=== PATIENT | male | born 1955 | race Caucasian/White ===

== ENCOUNTER → 2018-02-02 | Outpatient (CLI) | payer OTHER, MEDICARE ==
[2018-02-02 18:57] LABS: BILIRUBIN,URINE 1+ (NEGATIVE); CLARITY,URINE VERY CLOUDY; COLOR,URINE YELLOW; GLUCOSE, URINE (UA) NEGATIVE (NEGATIVE); KETONES,URINE 1+ (NEGATIVE); LEUKOCYTE ESTERASE ,URINE 3+ (NEGATIVE); NITRITE,URINE POSITIVE (NEGATIVE); PH,URINE 5 (5-9); PROTEIN,URINE 3+ (NEGATIVE); UROBILINOGEN,URINE 1 MG/DL (NORMAL)
[2018-02-02 19:15] LABS: BACTERIA,URINE FEW /HPF; WBC,URINE TNTC /HPF
[2018-02-02 19:17] LABS: AMORPHOUS SEDIMENT,UR LARGE AMOR URATES /LPF; BILIRUBIN,TOTAL 0.9 MG/DL (0.1-1.0); CALCIUM 8.8 MG/DL (8.5-10.1); CREATININE SERUM 2.88 MG/DL (0.60-1.30); POTASSIUM 3.9 MMOL/L (3.6-5.0); TOTAL PROTEIN 7.5 GM/DL (6.4-8.2)
[2018-02-02 19:59] LABS: BASOPHILS % (AUTO) 0 % (0-10); EOSINOPHILS # (AUTO) 0.1 10^3/uL (0.0-0.3); EOSINOPHILS % (AUTO) 1 % (0-10); HEMATOCRIT 33 % (40-54); LYMPHOCYTES # (AUTO) 0.5 X 10^3 (1.0-4.0); LYMPHOCYTES % (AUTO) 10 % (12-44); MEAN CORPUSCULAR HEMOGLOBIN 33 PG (25-34); MEAN CORPUSCULAR HGB CONC 34 G/DL (32-36); MEAN CORPUSCULAR VOLUME 99 FL (80-99); MEAN PLATELET VOLUME 10.9 FL (7.4-10.4); MONOCYTES # (AUTO) 0.5 X 10^3 (0.0-1.0); MONOCYTES % (AUTO) 11 % (0-12); NEUTROPHILS % (AUTO) 78 % (42-75); PLATELET COUNT 125 10^3/uL (130-400); RED CELL DISTRIBUTION WIDTH 16.7 % (10.0-14.5); WHITE BLOOD COUNT 5.2 10^3/uL (4.3-11.0)
== END ==
PROVIDERS: ATTEND Family Medicine
DX: N18.3 Chronic kidney disease, stage 3 (moderate) (principal); I48.2 Chronic atrial fibrillation; R82.90 Unspecified abnormal findings in urine
CPT/HCPCS: 80053; 81000; 85025; 87077; 87088; 87186

== ENCOUNTER 2019-04-04 07:08 | Emergency (ER) | payer MEDICARE, OTHER ==
[~2019-04-04 07:08] MED LIST: AMIO200T4; COLC0.6T53; FEBU40TA; LEVO175T5; OMEP20CA13; OXYC-464; ROPI0.5T2; WARF-47
[2019-04-04 07:36] LABS: BASOPHILS % (AUTO) 0 % (0-10); EOSINOPHILS % (AUTO) 0 % (0-10); HEMATOCRIT 35 % (40-54); HEMOGLOBIN 11.7 G/DL (13.3-17.7); LYMPHOCYTES # (AUTO) 0.3 X 10^3 (1.0-4.0); LYMPHOCYTES % (AUTO) 2 % (12-44); MEAN CORPUSCULAR HEMOGLOBIN 35 PG (25-34); MEAN CORPUSCULAR HGB CONC 34 G/DL (32-36); MEAN CORPUSCULAR VOLUME 103 FL (80-99); MEAN PLATELET VOLUME 10.9 FL (7.4-10.4); MONOCYTES % (AUTO) 5 % (0-12); NEUTROPHILS # (AUTO) 12.5 X 10^3 (1.8-7.8); NEUTROPHILS % (AUTO) 91 % (42-75); PLATELET COUNT 77 10^3/uL (130-400); RED CELL DISTRIBUTION WIDTH 15.2 % (10.0-14.5); WHITE BLOOD COUNT 13.7 10^3/uL (4.3-11.0)
[2019-04-04 07:37] LABS: MONOCYTES # (AUTO) 0.7 X 10^3 (0.0-1.0)
[2019-04-04] MEDS ORDERED: ACETAMINOPHEN 500 MG TAB (TYLENOL) PO ONE (07:45)
[2019-04-04 07:49] LABS: POTASSIUM 3.6 MMOL/L (3.6-5.0)
[2019-04-04 07:50] LABS: ALBUMIN 3.8 GM/DL (3.2-4.5); BILIRUBIN,TOTAL 0.8 MG/DL (0.1-1.0); CREATININE SERUM 5.18 MG/DL (0.60-1.30); TOTAL PROTEIN 7.2 GM/DL (6.4-8.2)
[2019-04-04] MEDS ORDERED: AMIODARONE 200 MG (CORDARONE) TAB PO SCH (08:00)
--- NOTE | 2019-04-04 08:00 | Diagnostic Imaging Report ---
INDICATION: Fever, chills COMPARISON: 11/09/2018 TECHNIQUE: Single radiograph of the chest dated 04/04/2019. FINDINGS: Postsurgical changes of a median sternotomy. Previously noted right IJ dialysis catheter has been removed. Pacer device is again noted with the battery pack overlying the left chest. The cardiac silhouette is enlarged, though stable. Central pulmonary vascular congestion is present. The lungs are clear of focal pulmonary opacity. No pleural effusion. No pneumothorax. No acute osseous abnormality. IMPRESSION: Cardiomegaly with mild central pulmonary vascular congestion. Interval removal of previously noted right IJ dialysis catheter. Dictated by: Dictated on workstation # [id number]
[2019-04-04 08:02] LABS: BAND NEUTROPHILS 16 %; BASOPHILS % (MANUAL) 0 %; EOSINOPHILS % (MANUAL) 0 %; INR 2.1 (0.8-1.4); LYMPHOCYTES % (MANUAL) 3 %; MONOCYTES % (MANUAL) 2 %; NEUTROPHILS % (MANUAL) 79 %
[2019-04-04 08:03] LABS: ANISOCYTOSIS SLIGHT
[2019-04-04 08:12] LABS: BACTERIA,URINE MODERATE /HPF; BILIRUBIN,URINE NEGATIVE (NEGATIVE); CLARITY,URINE SL CLOUDY; COLOR,URINE YELLOW; GLUCOSE, URINE (UA) NEGATIVE (NEGATIVE); KETONES,URINE NEGATIVE (NEGATIVE); LEUKOCYTE ESTERASE ,URINE 2+ (NEGATIVE); NITRITE,URINE NEGATIVE (NEGATIVE); PH,URINE 5.5. (5-9); PROTEIN,URINE 1+ (NEGATIVE); SQUAMOUS EPITHELIAL CELL,UR 0-2 /HPF; WBC,URINE 50-100 /HPF
--- NOTE | 2019-04-04 08:23 | ED General ---
General Chief Complaint: Fever-Adult/Adol Stated Complaint: N/V Nursing Triage Note: Brought in by EMS for nausea, vomiting, diarrhea since 0300 and chills. Patient is on dialysis and was unable to go to dialysis yesterday due to not feeling well. Normally goes to dialysis on tuesdays, , and saturdays. Is brought in on nonrebreather due to O2 sats in low 80's when ems arrived. Was given 4 mg of zofran en route to ED and approximately 200 ml of NS. Patient is able to state name and date, but is unable to answer questions about his current illness. Family present states they have never seen him this disoriented. Nursing Sepsis Screen: No Definite Risk Source of Information: Patient, EMS, Family Exam Limitations: No Limitations History of Present Illness Date Seen by Provider: Apr 04, 2019 Time Seen by Provider: 07:15 Initial Comments Presents via EMS w c/o onset of n/v/d last night @ 0300. Given zofran en-route to ER w relief of nausea. Pt confused on arrival and difficulty completing a sentence, but answers questions appropriately. Son presents later and states he is not acting normally and has been feeling poorly for a couple days....missed dialysis yesterday as he wasn't feeling well. Allergies and Home Medications Allergies Coded Allergies: Penicillins (Unverified Adverse Reaction, Unknown, 11/09/18) bacitracin (Unverified Adverse Reaction, Unknown, 11/09/18) neomycin (Unverified Adverse Reaction, Unknown, 11/09/18) polymyxin B (Unverified Adverse Reaction, Unknown, 11/09/18) Patient Home Medication List Home Medication List Reviewed: Yes Review of Systems Review of Systems Constitutional: No chills, No fever; malaise, weakness Respiratory: cough; No short of breath Cardiovascular: No chest pain; edema; No palpitations, No syncope; vascular heart diseas Gastrointestinal: No abdominal pain; diarrhea, nausea, vomiting Musculoskeletal: No back pain, No joint pain Skin: No lesions, No rash Psychiatric/Neurological: Denies Headache, Denies Numbness, Denies Seizure unable to obtain due to MS change Past Ntvjure-Euembr-Tqmuob Hx Past Med/Social Hx: Reviewed Nursing Past Med/Soc Hx Patient Social History Alcohol Use: Denies Use Recreational Drug Use: No Smoking Status: Former Smoker Type Used: Cigarettes Former Smoker, Quit: Apr 23, 1991 2nd Hand Smoke Exposure: No Recent Foreign Travel: No Contact w/Someone Who Travel: No Recent Infectious Disease Expo: No Recent Hopitalizations: No Physical Abuse: No Sexual Abuse: No Mistreated: No Fear: No Immunizations Up To Date Tetanus Booster (TDap): Unknown Seasonal Allergies Seasonal Allergies: No Past Medical History Surgeries: Yes (CVC line placement, Fistula placement, AVR, hernia repair, kidney stones) Defibrillator, Valve Replacement Respiratory: No (Tobaccoism hx 27 yrs) Cardiac: Yes (CHF) Hypertension Neurological: No Genitourinary: Yes Kidney Stones, Renal Failure Gastrointestinal: No Musculoskeletal: No Endocrine: Yes Hypothyroidsim HEENT: No Cancer: No Psychosocial: No Integumentary: No Recent Skin Changes Blood Disorders: No Physical Exam-Suspected Sepsis Physical Exam Vital Signs Vital Signs - First Documented 04/04/19 07:29 Temp 38.6 Pulse 117 Resp 30 B/P (MAP) 112/80 (91) Pulse Ox 99 Capillary Refill : Less Than 3 Seconds Blood Pressure Mean: 91 POS Height, Weight, BMI Height: 5'9.00" Weight: 261lbs. oz. 118.576380nh; BMI Method:Stated General Appearance: No Apparent Distress, WD/WN Eyes: Bilateral Eye PERRL, Bilateral Eye EOMI HEENT: TMs Normal, Pharynx Normal Neck: Full Range of Motion, Normal Inspection, Non Tender, Supple Respiratory: Chest Non Tender, No Respiratory Distress; No Respiratory Distress; Rhonci Cardiovascular: Irregularly Irregular, Tachycardia Gastrointestinal: Normal Bowel Sounds, Non Tender, Soft Back: No CVA Tenderness Extremity: Non Tender, No Calf Tenderness, Pedal Edema, Other (chronic LE- edema and skin changes) Neurologic/Psychiatric: Alert, Disoriented Skin: normal color, warm/dry Lymphatic: No Adenopathy Focused Exam Lactate Level 04/04/19 07:25: Lactic Acid Level 4.19*H Lactic Acid Level Progress/Results/Core Measures Suspected Sepsis Recent Fever Within 48 Hours: Yes Infection Criteria Present: Suspected New Infection New/Unexplained Altered Menta: Yes Sepsis Screen: No Definite Risk Within 3hrs of presentation: Admin fluids, Admin ABX, Blood cultures prior to ABX's, Focus exam, Lactate level SIRS Temperature: Pulse: 117 Respiratory Rate: 30 Laboratory Tests 04/04/19 07:25: White Blood Count 13.7H Blood Pressure 112 /80 Mean: 91 04/04/19 07:25: Lactic Acid Level 4.19*H Laboratory Tests 04/04/19 07:25: Creatinine 5.18H, INR Comment 2.1H, Platelet Count 77L, Total Bilirubin 0.8 Results/Orders Lab Results Laboratory Tests Test 04/04/19 07:25 04/04/19 08:01 Range/Units White Blood Count 13.7 H 4.3-11.0 10^3/uL Red Blood Count 3.39 L 4.35-5.85 10^6/uL Hemoglobin 11.7 L 13.3-17.7 G/DL Hematocrit 35 L 40-54 % Mean Corpuscular Volume 103 H 80-99 FL Mean Corpuscular Hemoglobin 35 H 25-34 PG Mean Corpuscular Hemoglobin Concent 34 32-36 G/DL Red Cell Distribution Width 15.2 H 10.0-14.5 % Platelet Count 77 L 130-400 10^3/uL Mean Platelet Volume 10.9 H 7.4-10.4 FL Neutrophils (%) (Auto) 91 H 42-75 % Lymphocytes (%) (Auto) 2 L 12-44 % Monocytes (%) (Auto) 5 0-12 % Eosinophils (%) (Auto) 0 0-10 % Basophils (%) (Auto) 0 0-10 % Neutrophils # (Auto) 12.5 H 1.8-7.8 X 10^3 Lymphocytes # (Auto) 0.3 L 1.0-4.0 X 10^3 Monocytes # (Auto) 0.7 0.0-1.0 X 10^3 Eosinophils # (Auto) 0.0 0.0-0.3 10^3/uL Basophils # (Auto) 0.0 0.0-0.1 10^3/uL Neutrophils % (Manual) 79 % Lymphocytes % (Manual) 3 % Monocytes % (Manual) 2 % Eosinophils % (Manual) 0 % Basophils % (Manual) 0 % Band Neutrophils 16 % Anisocytosis SLIGHT Macrocytosis SLIGHT Prothrombin Time 24.0 H 12.2-14.7 SEC INR Comment 2.1 H 0.8-1.4 Sodium Level 133 L 135-145 MMOL/L Potassium Level 3.6 3.6-5.0 MMOL/L Chloride Level 95 L 98-107 MMOL/L Carbon Dioxide Level 22 21-32 MMOL/L Anion Gap 16 H 5-14 MMOL/L Blood Urea Nitrogen 67 H 7-18 MG/DL Creatinine 5.18 H 0.60-1.30 MG/DL Estimat Glomerular Filtration Rate 11 BUN/Creatinine Ratio 13 Glucose Level 124 H 70-105 MG/DL Lactic Acid Level 4.19 *H 0.50-2.00 MMOL/L Calcium Level 9.0 8.5-10.1 MG/DL Corrected Calcium 9.2 8.5-10.1 MG/DL Total Bilirubin 0.8 0.1-1.0 MG/DL Aspartate Amino Transf (AST/SGOT) 23 5-34 U/L Alanine Aminotransferase (ALT/SGPT) 10 0-55 U/L Alkaline Phosphatase 50 40-136 U/L Total Protein 7.2 6.4-8.2 GM/DL Albumin 3.8 3.2-4.5 GM/DL Urine Color YELLOW Urine Clarity SL CLOUDY Urine pH 5.5. 5-9 Urine Specific Reading 1.020 1.016-1.022 Urine Protein 1+ H NEGATIVE Urine Glucose (UA) NEGATIVE NEGATIVE Urine Ketones NEGATIVE NEGATIVE Urine Nitrite NEGATIVE NEGATIVE Urine Bilirubin NEGATIVE NEGATIVE Urine Urobilinogen 0.2 < = 1.0 MG/DL Urine Leukocyte Esterase 2+ H NEGATIVE Urine RBC (Auto) 2+ H NEGATIVE Urine RBC 2-5 H /HPF Urine WBC 50-100 H /HPF Urine Squamous Epithelial Cells 0-2 /HPF Urine Crystals NONE /LPF Urine Bacteria MODERATE H /HPF Urine Casts NONE /LPF Urine Mucus NEGATIVE /LPF Urine Culture Indicated YES Micro Results Microbiology 04/04/19 Influenza Types A,B Antigen (EDWINA) - Final, Complete My Orders Orders - ODALYS BLANC DO Ed Iv/Invasive Line Start (04/04/19 07:11) Cbc With Automated Diff (04/04/19 07:11) Comprehensive Metabolic Panel (04/04/19 07:11) Ekg Tracing (04/04/19 07:11) Manual Differential (04/04/19 07:25) Chest 1 View Ap/Pa Only (04/04/19 07:39) Lactic Acid Analyzer (04/04/19 07:39) Acetaminophen Tablet (Tylenol Tablet) (04/04/19 07:45) Blood Culture (04/04/19 07:48) Protime With Inr (04/04/19 07:48) Amiodarone Tablet (Cordarone Tablet) (04/04/19 08:00) Urinalysis (04/04/19 08:00) Influenza A And B Antigens (04/04/19 08:10) Urine Culture (04/04/19 08:01) Vancomycin Injection (Vancomycin Injecti (04/04/19 08:30) Vancomycin Injection (Vancomycin Injecti (04/04/19 08:34) Ns (Ivpb) (Sodium Chloride 0.9%) (04/04/19 08:34) Amiodarone For Bolus (Cordarone Bolus) (04/04/19 09:30) Amiodarone Injection (Cordarone Injectio (04/04/19 09:45) Norepinephrine (Levophed) (04/04/19 10:07) Ns (Ivpb) (Sodium Chloride 0.9%) (04/04/19 10:07) Norepinephrine (Levophed) (04/04/19 10:15) Meropenem (Merrem 1000 Mg) (04/04/19 10:15) Meropenem (Merrem 500 Mg) (04/04/19 10:19) Water (Sterile) For Injection (Sterile W (04/04/19 10:19) Ekg Tracing (04/04/19 11:12) Blood Culture (04/04/19 08:14) Medications Given in ED Current Medications Medications Dose Ordered Sig/Roly Route Start Time Stop Time Status Last Admin Dose Admin Acetaminophen 1,000 mg ONCE ONCE PO 04/04/19 07:45 04/04/19 07:46 DC 04/04/19 08:07 1,000 MG Amiodarone HCl 150 mg/Dextrose 103 ml @ 600 mls/hr ONCE ONCE IV 04/04/19 09:30 04/04/19 09:40 DC 04/04/19 09:46 600 MLS/HR Meropenem 1000 mg/ Sterile Water 20 ml @ 240 mls/hr ONCE ONCE IV 04/04/19 10:15 04/04/19 10:19 DC 04/04/19 10:27 240 MLS/HR Vital Signs/I&O 04/04/19 04/04/19 04/04/19 04/04/19 07:29 08:18 09:03 10:45 Temp 38.6 38.5 38.4 38.3 Pulse 117 123 109 Resp 30 30 29 B/P (MAP) 112/80 (91) 156/103 98/26 (50) Pulse Ox 99 95 93 Capillary Refill : Less Than 3 Seconds Blood Pressure Mean: 91 POS Progress Note : Time: 09:[address] Beverly (hospitalist @ [facility]) discussed consideration of pt transfer. Dr Hightower says that because pt is on dialysis it would be better to go to [facility] Pt w multiple episodes of V. Tach, sustained for > 30 sec. Normally takes Amiodarone, given bolus and started gtt. Called [facility] @ 0940 to ask about bed status and to escalate importance of transfer 1005- Spoke to Dr Stanton (director of real estate @ [facility]) who accepts to ICU. Advised to start Meripenum Discussed critical medical status w patient, his son and . Discussion between pt and his son regarding wishes to be DNR status.....nurse present for conversation. Does not want "life support or CPR" performed. Left ER Dept improved, but guarded. HR improved w decreased runs of sustained V-tach. Left on Levophed and Amiodarone gtts. Meropenim started. ECG Initial ECG Impression Date: Apr 04, 2019 Initial ECG Rhythm: A Fib/Flutter, PVC Initial ECG Impression: Atrial Fibrillation w/RVR Initial ECG Comparisson: No Previous ECG Available Diagnostic Imaging Plain Films/CT/US/NM/MRI: chest Reviewed: Reviewed by Me Critical Care Note Critical Care Start Time: 07:15 Stop Time: 08:15 Total Time (minutes) 60 Progress See chart for pt course. Septic w Cardiac arrhythmia. Amiodarone bolus and IV gtt started as well as NE gtt for low MAP. Departure Impression Primary Impression: Sepsis Qualified Codes: A41.9 - Sepsis, unspecified organism Additional Impressions: CRF (chronic renal failure) Qualified Codes: N18.9 - Chronic kidney disease, unspecified Ventricular tachyarrhythmia Disposition: XFER SHT-TRM HOSP Condition: Stable Transfer Transfer Reason: Exceeds level of care (needs facility w Dialysis capabilities) Time Spoke to Accepting Phy: 08:00 Transfer Progress Notes Spoke to Dr Al-Minri regarding pt presentation and HPI as well as pertinent PMHx and Dx of Sepsis with suspected gastrointestinal etiology.....accepts for transfer @ 0800 Patient later accepted by Dr Stanton ([facility]) Transfer Facility: [facility] Method of Transfer: EMS Departure-Patient Inst. Referrals: SELF,BRANDIN CASE (PCP/Family) Primary Care Physician ODALYS BLANC DO Apr 04, 2019 08:22 POS
[2019-04-04] MEDS ORDERED: VANCOMYCIN INJECTION 1,000 MG in NS (IVPB) 250 ML IV SCH (08:30)
[2019-04-04] MEDS ORDERED: NS (IVPB) 250 ML ONE ×2 (08:34→10:07)
[2019-04-04] MEDS ORDERED: VANCOMYCIN 1000 MG/VIAL ONE (08:34)
[2019-04-04] MEDS ORDERED: AMIODARONE FOR BOLUS 150 MG in D5W 100 ML IVPB 100 ML IV ONE (09:30)
[2019-04-04] MEDS ORDERED: AMIODARONE INJECTION 450 MG in D5W IV SOLUTION (EXCEL) 250 ML IV SCH (09:45)
[2019-04-04] MEDS ORDERED: NOREPINEPHRINE 4 MG/4 ML (LEVOPHED) AMP IV ONE (10:07)
[2019-04-04] MEDS ORDERED: NOREPINEPHRINE 4 MG in NS (IVPB) 250 ML IV SCH (10:15)
[2019-04-04] MEDS ORDERED: MEROPENEM 1,000 MG in WATER (STERILE) FOR INJECTION 20 ML IV ONE (10:15)
[2019-04-04] MEDS ORDERED: MEROPENEM 500 MG VIAL (MERREM) IV ONE (10:19)
[2019-04-04] MEDS ORDERED: WATER (STERILE) FOR INJECTION 20 ML ONE (10:19)
[2019-04-04 10:45] VITALS: BP 98/26
== END 2019-04-04 10:45 | disposition short-term general hospital (02) ==
LOC: EDBD → EDUNIT# 07:08 → ER FS 07:09 → MERGE 07:09 → ER FS 10:45
DX: A41.9 Sepsis, unspecified organism (principal); R65.20 Severe sepsis without septic shock; I13.2 Hypertensive heart and chronic kidney disease with heart failure and with stage 5 chronic kidney disease, or end stage renal disease; I50.9 Heart failure, unspecified; N18.6 End stage renal disease; I47.2 Ventricular tachycardia; E03.9 Hypothyroidism, unspecified; Z99.2 Dependence on renal dialysis; Z88.0 Allergy status to penicillin; Z88.1 Allergy status to other antibiotic agents; Z87.891 Personal history of nicotine dependence; Z95.810 Presence of automatic (implantable) cardiac defibrillator; Z87.442 Personal history of urinary calculi
CPT/HCPCS: 36415; 71045; 80053; 81000; 83605; 85007; 85027; 85610; 87040; 87077; 87088; 87186; 87804; 93005; 96365; 96367; 96368; 96375

== ENCOUNTER 2019-05-10 09:18 | Emergency (ER) | payer MEDICARE, OTHER ==
[~2019-05-10] VITALS: Ht 175.2 cm; Wt 115.9 kg
[~2019-05-10 09:18] MED LIST changes: +OMEP-280; -OMEP20CA13
[2019-05-10 11:23] LABS: BASOPHILS % (AUTO) 0 % (0-10); EOSINOPHILS % (AUTO) 0 % (0-10); HEMATOCRIT 34 % (40-54); HEMOGLOBIN 10.9 G/DL (13.3-17.7); LYMPHOCYTES # (AUTO) 0.9 X 10^3 (1.0-4.0); LYMPHOCYTES % (AUTO) 30 % (12-44); MEAN CORPUSCULAR HEMOGLOBIN 34 PG (25-34); MEAN CORPUSCULAR HGB CONC 32 G/DL (32-36); MEAN CORPUSCULAR VOLUME 105 FL (80-99); MEAN PLATELET VOLUME 11.1 FL (7.4-10.4); MONOCYTES # (AUTO) 0.4 X 10^3 (0.0-1.0); MONOCYTES % (AUTO) 14 % (0-12); NEUTROPHILS # (AUTO) 1.6 X 10^3 (1.8-7.8); NEUTROPHILS % (AUTO) 56 % (42-75); PLATELET COUNT 111 10^3/uL (130-400); RED CELL DISTRIBUTION WIDTH 17.4 % (10.0-14.5); WHITE BLOOD COUNT 2.8 10^3/uL (4.3-11.0)
[2019-05-10 11:52] LABS: ALBUMIN 3.5 GM/DL (3.2-4.5); BILIRUBIN,TOTAL 0.6 MG/DL (0.1-1.0); CALCIUM 8.7 MG/DL (8.5-10.1); POTASSIUM 3.6 MMOL/L (3.6-5.0); TOTAL PROTEIN 8.1 GM/DL (6.4-8.2)
--- NOTE | 2019-05-10 11:55 | NUR ---
OLD PICC LINE DRESSNG REMOVED CULTURE OBTAINED. REDNESS AND AT SITE SEROUS DRAINGAGE NOTED. NEW DRESSNG APPLIED PATIEND REPORTS THAT IT FEELS MUCH BETTER.
--- NOTE | 2019-05-10 13:10 | NUR ---
[facility] CALLED AND INFORMED THAT PATIENT IS TRANSFERING TO [facility],AND THEY NEED TO COME GET HIS W/C
--- NOTE | 2019-05-10 13:16 | ED General ---
General Chief Complaint: Catheter/Drain/Tube Problems Stated Complaint: INFECTED PICC LINE Nursing Triage Note: TO ED PER W/C FROM [facility] CONCERN THAT PICC LINE IN R ARM MAY BE INFECTED. REDNESS NOTED. PATIENT REPORTS THAT REDNESS WAS NOT THEIR YESTERDAY. USING PICC LINE FOR ANTIBIOTICS. Nursing Sepsis Screen: No Definite Risk Source of Information: Patient, Alf Records, Other (alf caregiver) Exam Limitations: No Limitations History of Present Illness Date Seen by Provider: May 10, 2019 Time Seen by Provider: 09:57 Initial Comments This 63-year-old gentleman presents to the emergency room from [facility] in [place] with concerns about erythema and drainage around his right arm PICC line. He noticed the erythema and drainage this morning. He has serous fluid pooled up underneath the dressing. He states the area is mildly itchy and painful. He was admitted by transfer from [place] to [place] in mid March for sepsis. He has a complicated patient because he receives dialysis and has a mechanical heart valve. He has been on continuous nafcillin infusions since returning to the alf. He is afebrile and does not present septic. He receives dialysis Sunday, , and Sunday. He is missing dialysis now. Allergies and Home Medications Allergies Coded Allergies: Penicillins (Unverified Adverse Reaction, Unknown, 04/07/19) bacitracin (Unverified Adverse Reaction, Unknown, 04/07/19) neomycin (Unverified Adverse Reaction, Unknown, 04/07/19) polymyxin B (Unverified Adverse Reaction, Unknown, 04/07/19) Patient Home Medication List Home Medication List Reviewed: Yes Review of Systems Review of Systems Constitutional: no symptoms reported EENTM: no symptoms reported Respiratory: no symptoms reported Cardiovascular: no symptoms reported Gastrointestinal: no symptoms reported Genitourinary: see HPI Musculoskeletal: no symptoms reported Skin: see HPI Psychiatric/Neurological: No Symptoms Reported Hematologic/Lymphatic: No Symptoms Reported Immunological/Allergic: no symptoms reported Past Kqydhgn-Hcpmen-Wtxhye Hx Past Med/Social Hx: Reviewed and Corrections made Patient Social History Alcohol Use: Denies Use Recreational Drug Use: No Smoking Status: Former Smoker Type Used: Cigarettes Former Smoker, Quit: Apr 23, 1991 2nd Hand Smoke Exposure: No Recent Foreign Travel: No Contact w/Someone Who Travel: No Recent Infectious Disease Expo: No Recent Hopitalizations: No Immunizations Up To Date Tetanus Booster (TDap): Unknown Seasonal Allergies Seasonal Allergies: No Past Medical History Surgeries: Yes (CVC line placement, Fistula placement, AVR, hernia repair, kidney stones) Defibrillator, Valve Replacement (mechanical), Vascular Surgery (dialysis fistula) Respiratory: No (Tobaccoism hx 27 yrs) Cardiac: Yes (CHF) Hypertension Neurological: No Genitourinary: Yes Kidney Stones, Renal Failure, Dialysis Gastrointestinal: No Musculoskeletal: No Endocrine: Yes Hypothyroidsim HEENT: No Cancer: No Psychosocial: No Integumentary: No Recent Skin Changes Blood Disorders: No Physical Exam Vital Signs Vital Signs - First Documented 05/10/19 05/10/19 09:40 15:05 Temp 36.8 Pulse 82 Resp 18 B/P (MAP) 141/94 (110) Pulse Ox 98 O2 Delivery Room Air Capillary Refill : Less Than 3 Seconds Height, Weight, BMI Height: 5'9.00" Weight: 261lbs. oz. 118.631763ar; 37.00 BMI Method:Stated General Appearance: No Apparent Distress, WD/WN HEENT: PERRL/EOMI, Normal ENT Inspection Neck: Normal Inspection Respiratory: Lungs Clear, Normal Breath Sounds, No Accessory Muscle Use Cardiovascular: Regular Rate, Rhythm, No Murmur, Other (moderate to severe edema of the lower extremities, equal bilaterally) Extremity: Other (PICC line in the right arm with surrounding erythema and tenderness. Serous drainage pooled up beneath the dressing around the insertion site) Neurologic/Psychiatric: Alert, Oriented x3, No Motor/Sensory Deficits, Normal Mood/Affect, scaffolder II-XII Norm as Tested Skin: Warm/Dry, Erythema (see extremity exam above) Progress/Results/Core Measures Suspected Sepsis Recent Fever Within 48 Hours: No Infection Criteria Present: Documented Infection New/Unexplained Altered Menta: No Sepsis Screen: No Definite Risk SIRS Temperature: Pulse: 82 Respiratory Rate: 18 Laboratory Tests 05/10/19 11:13: White Blood Count 2.8L Blood Pressure 141 /94 Mean: 110 Laboratory Tests 05/10/19 11:13: Creatinine 8.00H, Platelet Count 111L, Total Bilirubin 0.6 Results/Orders Lab Results Laboratory Tests Test 05/10/19 11:13 Range/Units White Blood Count 2.8 L 4.3-11.0 10^3/uL Red Blood Count 3.21 L 4.35-5.85 10^6/uL Hemoglobin 10.9 L 13.3-17.7 G/DL Hematocrit 34 L 40-54 % Mean Corpuscular Volume 105 H 80-99 FL Mean Corpuscular Hemoglobin 34 25-34 PG Mean Corpuscular Hemoglobin Concent 32 32-36 G/DL Red Cell Distribution Width 17.4 H 10.0-14.5 % Platelet Count 111 L 130-400 10^3/uL Mean Platelet Volume 11.1 H 7.4-10.4 FL Neutrophils (%) (Auto) 56 42-75 % Lymphocytes (%) (Auto) 30 12-44 % Monocytes (%) (Auto) 14 H 0-12 % Eosinophils (%) (Auto) 0 0-10 % Basophils (%) (Auto) 0 0-10 % Neutrophils # (Auto) 1.6 L 1.8-7.8 X 10^3 Lymphocytes # (Auto) 0.9 L 1.0-4.0 X 10^3 Monocytes # (Auto) 0.4 0.0-1.0 X 10^3 Eosinophils # (Auto) 0.0 0.0-0.3 10^3/uL Basophils # (Auto) 0.0 0.0-0.1 10^3/uL Sodium Level 141 135-145 MMOL/L Potassium Level 3.6 3.6-5.0 MMOL/L Chloride Level 98 98-107 MMOL/L Carbon Dioxide Level 24 21-32 MMOL/L Anion Gap 19 H 5-14 MMOL/L Blood Urea Nitrogen 20 H 7-18 MG/DL Creatinine 8.00 H 0.60-1.30 MG/DL Estimat Glomerular Filtration Rate 7 BUN/Creatinine Ratio 3 Glucose Level 78 70-105 MG/DL Calcium Level 8.7 8.5-10.1 MG/DL Corrected Calcium 9.1 8.5-10.1 MG/DL Total Bilirubin 0.6 0.1-1.0 MG/DL Aspartate Amino Transf (AST/SGOT) 16 5-34 U/L Alanine Aminotransferase (ALT/SGPT) 8 0-55 U/L Alkaline Phosphatase 75 40-136 U/L C-Reactive Protein High Sensitivity 0.53 H 0.00-0.50 MG/DL Total Protein 8.1 6.4-8.2 GM/DL Albumin 3.5 3.2-4.5 GM/DL Micro Results Microbiology 05/10/19 Gram Stain, Resulted Pending 05/10/19 Wound Culture - Preliminary, Resulted My Orders Orders - WALLACE CERVANTES MD Cbc With Automated Diff (05/10/19 09:57) Comprehensive Metabolic Panel (05/10/19 09:57) Hs C Reactive Protein (05/10/19 09:57) Wound Culture (05/10/19 11:00) Vital Signs/I&O 05/10/19 05/10/19 09:40 15:05 Temp 36.8 Pulse 82 87 Resp 18 18 B/P (MAP) 141/94 (110) 141/97 Pulse Ox 98 95 O2 Delivery Room Air Capillary Refill : Less Than 3 Seconds Blood Pressure Mean: 110 Progress Note : Time: 13:20 Progress Note Case was discussed with Dr. Lazaro. His recommendation is to have the PICC line removed and replaced. Via [facility] in [place] and does not have PICC line staff available on the weekends. Patient also is missing his dialysis at present. These factors prompted a call to the hospitalist at [place]. I discussed the case with Dr. Mckeon who agrees patient ought to be assessed and treated at [place] where appropriate resources are available and continuity of care can be insured. Basic labs were obtained. No other specific treatments were administered prior to transfer. Departure Impression Primary Impression: PICC line infection Qualified Codes: T80.219A - Unspecified infection due to central venous catheter, initial encounter Additional Impressions: End stage renal failure on dialysis Mechanical heart valve present Disposition: 02 XFER SHT-TRM HOSP Condition: Stable Transfer Transfer Reason: Exceeds level of care Time Spoke to Accepting Phy: 12:50 Transfer Progress Notes Transfer accepted by Dr. Mckeon at [place]. Transfer Time: 15:14 Transfer Facility: [facility] Method of Transfer: EMS Departure-Patient Inst. Referrals: BRANDIN HAMILTON MD (PCP/Family) Primary Care Physician Copy Copies To 1: BRANDIN HAMILTON MD, JOSHUA T MD May 10, 2019 13:16
--- NOTE | 2019-05-10 13:34 | NUR ---
[facility] NOTIFIED OF TRANSFER
--- NOTE | 2019-05-10 13:36 | NUR ---
WAITING FOR ROOM FROM [facility]
--- NOTE | 2019-05-10 14:04 | NUR ---
CALLED BACK TO CHECK NO BED AVAILABE YET.
--- NOTE | 2019-05-10 14:47 | NUR ---
EMS CALLED FOR TRANSFER
[2019-05-10 15:05] VITALS: BP 141/97
== END 2019-05-10 15:14 | disposition short-term general hospital (02) ==
LOC: EDUNIT# 09:18 → ER 09:19
DX: T80.219A Unspecified infection due to central venous catheter, initial encounter (principal); I13.2 Hypertensive heart and chronic kidney disease with heart failure and with stage 5 chronic kidney disease, or end stage renal disease; I50.9 Heart failure, unspecified; N18.6 End stage renal disease; E03.9 Hypothyroidism, unspecified; Z99.2 Dependence on renal dialysis; Z95.2 Presence of prosthetic heart valve; Z88.0 Allergy status to penicillin; Z88.1 Allergy status to other antibiotic agents; Z88.4 Allergy status to anesthetic agent; Z87.891 Personal history of nicotine dependence; Z87.442 Personal history of urinary calculi; Z95.810 Presence of automatic (implantable) cardiac defibrillator
CPT/HCPCS: 36415; 80053; 85025; 86141; 87070; 87205; 99282

== ENCOUNTER 2019-08-27 08:56 | Emergency (ER) | payer MEDICARE, OTHER ==
[~2019-08-27] VITALS: Ht 175.2 cm; Wt 113.6 kg
[~2019-08-27 08:56] MED LIST changes: -OMEP-280; +OMEP20CA18; -ROPI0.5T2; +ROPI0.5T4
--- OUTSIDE RECORDS SUMMARY | 2019-08-27 09:10 | XMS REPORT | Continuity of Care Document ---
Author Organization Unknown Address Unknown Phone Unavailable Allergies Active Description Code Type Severity Reaction Onset Reported/Identified Relationship to Patient Clinical Status Yes bacitracin [id number] Drug Allerg y Unknown N/A 11/09/2018 Yes neomycin [id number] Drug Allergy Unknown N/A 11/09/2018 Yes Penicillins [id number] Drug Aller gy Unknown N/A 11/09/2018 Yes polymyxin B [id number] Drug Aller gy Unknown N/A 11/09/2018 Medications There is no data. 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 11/09/2018 Ot I50.9 HEAR T FAILURE, UNSPECIFIED 11/09/2018 Ot M25.511 PA IN IN RIGHT SHOULDER 11/09/2018 Ot N18.6 END STAGE RENAL DISEASE 11/09/2018 Ot R11.2 NAUS EA WITH VOMITING, UNSPECIFIED 11/09/2018 Ot T80.211A B LOODSTREAM INFECTION DUE TO CENTRAL JUAN ALBERTO 11/09/2018 Ot Z87.442 PE RSONAL HISTORY OF URINARY CALCULI 11/09/2018 Ot 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 11/09/2018 Ot Z88.0 IVONNE RGY STATUS TO PENICILLIN 11/09/2018 Ot Z88.1 IVONNE RGY STATUS TO OTHER ANTIBIOTIC AGENT 11/09/2018 Ot Z95.2 PRES ENCE OF PROSTHETIC HEART VALVE 11/09/2018 Ot Z95.810 [place] ESENCE OF AUTOMATIC (IMPLANTABLE) CARD 11/09/2018 Ot Z98.890 OT HER SPECIFIED POSTPROCEDURAL STATES 11/09/2018 Ot Z99.2 DEPE NDENCE ON RENAL DIALYSIS 04/04/2019 Ot A41.9 SEPS IS, UNSPECIFIED ORGANISM 04/04/2019 Ot E03.9 HYPO THYROIDISM, UNSPECIFIED 04/04/2019 Ot 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 04/04/2019 Ot 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 04/04/2019 Ot I50.9 HEAR T FAILURE, UNSPECIFIED 04/04/2019 Ot N18.6 END STAGE RENAL DISEASE 04/04/2019 Ot R11.2 NAUS EA WITH VOMITING, UNSPECIFIED 04/04/2019 Ot R65.20 SEV ERE SEPSIS WITHOUT SEPTIC SHOCK 04/04/2019 Ot Z87.442 PE RSONAL HISTORY OF URINARY CALCULI 04/04/2019 Ot 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 04/04/2019 Ot Z88.0 IVONNE RGY STATUS TO PENICILLIN 04/04/2019 Ot Z88.1 IVONNE RGY STATUS TO OTHER ANTIBIOTIC AGENT 04/04/2019 Ot Z95.810 [place] ESENCE OF AUTOMATIC (IMPLANTABLE) CARD 04/04/2019 Ot Z99.2 DEPE NDENCE ON RENAL DIALYSIS 05/13/2019 BILLY CASE, WALLACE Laughlin Ot E03.9 HYPOTHYROIDISM, UNSPECIFIED 05/13/2019 BILLY CASE, WALLACE Laughlin Ot 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 05/13/2019 WALLACE CERVANTES MD Ot I50.9 HEART FAILURE, UNSPECIFIED 05/13/2019 WALLACE CERVANTES MD Ot N18.6 END STAGE RENAL DISEASE 05/13/2019 WALLACE CERVANTES MD Ot T80.219A UNSP INFECTION DUE TO CENTRAL VENOUS CAT 05/13/2019 WALLACE CERVANTES MD Ot Z87.442 PERSONAL HISTORY OF URINARY CALCULI 05/13/2019 WALLACE CERVANTES MD Ot Z87.891 PERSONAL HISTORY OF NICOTINE DEPENDENCE 05/13/2019 WALLACE CERVANTES MD Ot Z88.0 ALLERGY STATUS TO PENICILLIN 05/13/2019 WALLACE CERVANTES MD Ot Z88.1 ALLERGY STATUS TO OTHER ANTIBIOTIC AGENT 05/13/2019 WALLACE CERVANTES MD, Ot Z88.4 ALLERGY STATUS TO ANESTHETIC AGENT STATU 05/13/2019 WALLACE CERVANTES MD, Ot Z95.2 PRESENCE OF PROSTHETIC HEART VALVE 05/13/2019 WALLACE CERVNATES MD, Ot Z95.810 PRESENCE OF AUTOMATIC (IMPLANTABLE) CARD 05/13/2019 WALLACE CERVANTES MD, Ot Z99.2 DEPENDENCE ON RENAL DIALYSIS Procedures There is no data. Results Test Result Range Complete urinalysis with reflex to cultu re - 02/02/18 18:46 Urine color determination YELLOW NRG Urine clarity determination VERY CLOUDY NRG Urine pH measurement by test strip 5 5-9 Specific gravity of urine by test strip 1.015 1.016-1.022 Urine protein assay by test strip, semi-quantitative 3+ NEGATIVE Urine glucose detection by automated test strip NE GATIVE NEGATIVE Erythrocytes detection in urine sediment by light micr oscopy 5+ NEGATIVE Urine ketones detection by automated test strip 1+ NEGATIVE Urine nitrite detection by test strip POSITIVE NEGATIVE Urine total bilirubin detection by test strip 1+ NEGATIVE Urine urobilinogen measurement by automated test strip (mass/volume) 1 mg/dL NORMAL Urine leukocyte esterase detection by dipstick 3+ NEGATIVE Automated urine sediment erythrocyte cou nt by microscopy (number/high power field) NONE NRG Automated urine sediment leukocyte count by microscopy (number/high power field) TNTC NRG Bacteria detection in urine sediment by light microsco py FEW NRG Squamous epithelial cells detection in u rine sediment by light microscopy NONE NRG Crystals detection in urine sediment by light microsco py PRESENT NRG Casts detection in urine sediment by light microscopy NONE NRG Mucus detection in urine sediment by light microscopy NEGATIVE NRG Complete urinalysis with reflex to culture YES NRG Amorphous sediment detection in urine sediment by ligh t microscopy LARGE DONALD URATES NRG Comprehensive metabolic panel - 02/02/18 18:46 Serum or plasma sodium measurement (moles/volume) 140 mmol/L 135-145 Serum or plasma potassium measurement (moles/volume) 3.9 mmol/L 3.6-5.0 Serum or plasma chloride measurement (moles/volume) 101 mmol/L 98-107 Carbon dioxide 25 mmol/L 21-32 Serum or plasma anion gap determination (moles/volume) 14 mmol/L 5-14 Serum or plasma urea nitrogen measurement (mass/volume ) 15 mg/dL 7-18 Serum or plasma creatinine measurement (mass/volume) 2.88 mg/dL 0.60-1.30 Serum or plasma urea nitrogen/creatinine mass ratio 5 NRG Serum or plasma creatinine measurement w ith calculation of estimated glomerular filtration rate 22 NRG Serum or plasma glucose measurement (mass/volume) 123 mg/dL 70-105 Serum or plasma calcium measurement (mass/volume) 8.8 mg/dL 8.5-10.1 Serum or plasma total bilirubin measurement (mass/volu me) 0.9 mg/dL 0.1-1.0 Serum or plasma alkaline phosphatase yasmeen surement (enzymatic activity/volume) 126 U/L 40-136 Serum or plasma aspartate aminotransfera se measurement (enzymatic activity/volume) 45 U/L 5-34 Serum or plasma alanine aminotransferase measurement (enzymatic activity/volume) 27 U/L 0-55 Serum or plasma protein measurement (mass/volume) 7.5 g/dL 6.4-8.2 Serum or plasma albumin measurement (mass/volume) 4.0 g/dL 3.2-4.5 CALCIUM CORRECTED 8.8 mg/dL 8.5-10.1 Bacterial urine culture - 02/02/18 18:46 Bacterial urine culture [id number] NR COLONY COUNT >100,000/ML NR FTX;REPORTABLE PLUS MIXED BACTERIAL GIOVANNA [facility] FREE TEXT ENTRY 2 ID REPORTED 02/04/18 15:05 [facility] FREE TEXT ENTRY 3 SUSCEPTIBILITIES REPORTED [facility] Sensitivity Panel - 02/02/18 18:46 Gentamicin susceptibility test by minimum inhibitory c oncentration <= NRG Trimethoprim/sulfamethoxazole susceptibi lity test by minimum inhibitoryconcentration <= NRG Levofloxacin susceptibility test by minimum inhibitory concentration <= NRG Ampicillin susceptibility test by minimum inhibitory c oncentration > NRG Cefazolin susceptibility test by minimum inhibitory co ncentration 2 NRG Ceftriaxone susceptibility test by minimum inhibitory concentration <= NRG Ciprofloxacin susceptibility test by minimum inhibitor y concentration <= NRG Meropenem susceptibility test by minimum inhibitory co ncentration <= NRG Nitrofurantoin susceptibility test by mi nimum inhibitory concentration 64 NRG Amoxicillin and clavulanate potassium susc EDWINA <= NRG RML Sensitivity Panel - 02/02/18 18:46 Gentamicin susceptibility test by minimum inhibitory c oncentration <= NRG Levofloxacin susceptibility test by minimum inhibitory concentration <= NRG Tobramycin susceptibility test by minimum inhibitory c oncentration S NRG Piperacillin/tazobactam susceptibility t est by minimum inhibitory concentration = NRG Ciprofloxacin susceptibility test by minimum inhibitor y concentration <= NRG Meropenem susceptibility test by minimum inhibitory co ncentration <= NRG Aztreonam susceptibility test by minimum inhibitory co ncentration 8 NRG Cefepime susceptibility test by minimum inhibitory con centration 4 NRG Imipenem susceptibility test by minimum inhibitory con centration 1 NRG Ceftazidime susceptibility test by minimum inhibitory concentration 4 NRG Complete blood count (CBC) with automate d white blood cell (WBC) differential - 02/02/18 19:56 Blood leukocytes automated count (number/volume) 5.2 10*3/uL 4.3-11.0 Blood erythrocytes automated count (number/volume) 3.30 10*6/uL 4.35-5.85 Venous blood hemoglobin measurement (mass/volume) 11.0 g/dL 13.3-17.7 Blood hematocrit (volume fraction) 33 % 40-54 Automated erythrocyte mean corpuscular volume 99 [ foz_us] 80-99 Automated erythrocyte mean corpuscular h emoglobin (mass per erythrocyte) 33 pg 25-34 Automated erythrocyte mean corpuscular h emoglobin concentration measurement (mass/volume) 34 g/dL 32-36 Automated erythrocyte distribution width ratio 16. 7 % 10.0- 14.5 Automated blood platelet count (count/volume) 125 10*3/uL 130-400 Automated blood platelet mean volume measurement 10.9 [foz_us] 7.4-10.4 Automated blood neutrophils/100 leukocytes 78 % 42-75 Automated blood lymphocytes/100 leukocytes 10 % 12-44 Blood monocytes/100 leukocytes 11 % 0-12 Automated blood eosinophils/100 leukocytes 1 % 0-10 Automated blood basophils/100 leukocytes 0 % 0-10 Blood neutrophils automated count (number/volume) 4.0 10*3 1.8-7.8 Blood lymphocytes automated count (number/volume) 0.5 10*3 1.0-4.0 Blood monocytes automated count (number/volume) 0. 5 10*3 0.0-1.0 Automated eosinophil count 0.1 10*3/uL 0 .0-0.3 Automated blood basophil count (count/volume) 0.0 10*3/uL 0.0-0.1 Bacterial blood culture - 04/04/19 07:25 FREE TEXT EXTERNAL SUSCEPTIBILITY REPORTED 9, 0949. NRG QUANTITY OF GROWTH Isolated NRG Bacterial blood culture [id number] NRG CALL POSITIVES (F1 HELP) METHICILLIN SENSITI VE STAPH AURUES NRG PBP2 ID CONFIRMED BY RML NRG RML SENSITIVITY MAIN LAB - 04/04/19 07:2 5 Oxacillin susceptibility test by minimum inhibitory co ncentration 0.5 NRG Clindamycin susceptibility test by minimum inhibitory concentration <= NRG Erythromycin susceptibility test by minimum inhibitory concentration <= NRG Trimethoprim/sulfamethoxazole susceptibi lity test by minimum inhibitoryconcentration <= NRG Vancomycin susceptibility test by minimum inhibitory c oncentration 1 NRG Levofloxacin susceptibility test by minimum inhibitory concentration <= NRG Rifampin susceptibility test by minimum inhibitory con centration <= NRG Cefazolin susceptibility test by minimum inhibitory co ncentration <= NRG Moxifloxacin susceptibility test by minimum inhibitory concentration <= NRG Minocycline susc EDWINA <= NRG Bacterial blood culture - 04/04/19 08:14 FREE TEXT EXTERNAL REFER TO CULTURE [id number] FOR MAIKEL DIES NRG QUANTITY OF GROWTH Isolated NRG Bacterial blood culture [id number] NRG CALL POSITIVES (F1 HELP) RML CONFIRMED ID NRG PBP2 METHICILLIN SENSITIVE STAPH AUREUS NRG RML SENSITIVITY MAIN LAB - 04/04/19 08:1 4 Oxacillin susceptibility test by minimum inhibitory co ncentration 0.5 NRG Clindamycin susceptibility test by minimum inhibitory concentration <= NRG Erythromycin susceptibility test by minimum inhibitory concentration <= NRG Trimethoprim/sulfamethoxazole susceptibi lity test by minimum inhibitoryconcentration <= NRG Vancomycin susceptibility test by minimum inhibitory c oncentration 1 NRG Levofloxacin susceptibility test by minimum inhibitory concentration <= NRG Rifampin susceptibility test by minimum inhibitory con centration <= NRG Cefazolin susceptibility test by minimum inhibitory co ncentration <= NRG Moxifloxacin susceptibility test by minimum inhibitory concentration <= NRG Minocycline susc EDWINA <= NRG Complete blood count (CBC) with automate d white blood cell (WBC) differential - 05/10/19 11:13 Blood leukocytes automated count (number/volume) 2.8 10*3/uL 4.3-11.0 Blood erythrocytes automated count (number/volume) 3.21 10*6/uL 4.35-5.85 Venous blood hemoglobin measurement (mass/volume) 10.9 g/dL 13.3-17.7 Blood hematocrit (volume fraction) 34 % 40-54 Automated erythrocyte mean corpuscular volume 105 [foz_us] 80-99 Automated erythrocyte mean corpuscular h emoglobin (mass per erythrocyte) 34 pg 25-34 Automated erythrocyte mean corpuscular h emoglobin concentration measurement (mass/volume) 32 g/dL 32-36 Automated erythrocyte distribution width ratio 17. 4 % 10.0- 14.5 Automated blood platelet count (count/volume) 111 10*3/uL 130-400 Automated blood platelet mean volume measurement 11.1 [foz_us] 7.4-10.4 Automated blood neutrophils/100 leukocytes 56 % 42-75 Automated blood lymphocytes/100 leukocytes 30 % 12-44 Blood monocytes/100 leukocytes 14 % 0-12 Automated blood eosinophils/100 leukocytes 0 % 0-10 Automated blood basophils/100 leukocytes 0 % 0-10 Blood neutrophils automated count (number/volume) 1.6 10*3 1.8-7.8 Blood lymphocytes automated count (number/volume) 0.9 10*3 1.0-4.0 Blood monocytes automated count (number/volume) 0. 4 10*3 0.0-1.0 Automated eosinophil count 0.0 10*3/uL 0 .0-0.3 Automated blood basophil count (count/volume) 0.0 10*3/uL 0.0-0.1 Comprehensive metabolic panel - 05/10/19 11:13 Serum or plasma sodium measurement (moles/volume) 141 mmol/L 135-145 Serum or plasma potassium measurement (moles/volume) 3.6 mmol/L 3.6-5.0 Serum or plasma chloride measurement (moles/volume) 98 mmol/L 98-107 Carbon dioxide 24 mmol/L 21-32 Serum or plasma anion gap determination (moles/volume) 19 mmol/L 5-14 Serum or plasma urea nitrogen measurement (mass/volume ) 20 mg/dL 7-18 Serum or plasma creatinine measurement (mass/volume) 8.00 mg/dL 0.60-1.30 Serum or plasma urea nitrogen/creatinine mass ratio 3 NRG Serum or plasma creatinine measurement w ith calculation of estimated glomerular filtration rate 7 NRG Serum or plasma glucose measurement (mass/volume) 78 mg/dL 70-105 Serum or plasma calcium measurement (mass/volume) 8.7 mg/dL 8.5-10.1 Serum or plasma total bilirubin measurement (mass/volu me) 0.6 mg/dL 0.1-1.0 Serum or plasma alkaline phosphatase yasmeen surement (enzymatic activity/volume) 75 U/L 40-136 Serum or plasma aspartate aminotransfera se measurement (enzymatic activity/volume) 16 U/L 5-34 Serum or plasma alanine aminotransferase measurement (enzymatic activity/volume) 8 U/L 0-55 Serum or plasma protein measurement (mass/volume) 8.1 g/dL 6.4-8.2 Serum or plasma albumin measurement (mass/volume) 3.5 g/dL 3.2-4.5 CALCIUM CORRECTED 9.1 mg/dL 8.5-10.1 Serum or plasma C reactive protein measu rement (mass/volume) - 05/10/19 11:13 Serum or plasma C reactive protein measurement (mass/v olume) 0.53 mg/dL 0.00-0.50 Gram stain microscopy - 05/10/19 11:50 Gram stain microscopy No bacteria seen NRG Bacteria identification in wound by cult ure - 05/10/19 11:50 Bacteria identification in wound by culture NG NRG Encounters ACCT No. Visit Date/Time Discharge Status Pt. Type Provider Facility Loc./Unit Complaint [id number] 05/10/2019 09:19:00 020 15:14:00 DIS Outpatient WALLACE CERVANTES MD [facility] ER INFECTED PICC L INE [id number] 02/02/2018 18:43:00 018 23:59:59 CLS Outpatient BRANDIN HAMILTON MD [facility] MLF CMP,CBCWD,UA REFLEX TO CULTURE [id number] 04/07/2019 09:29:00 Document Registration [id number] 11/09/2018 10:37:00 Document Registration
[2019-08-27] MEDS ORDERED: Demadex (09:25)
--- NOTE | 2019-08-27 09:26 | ED Upper Extremity ---
General Chief Complaint: Upper Extremity Stated Complaint: NECK PAIN Nursing Triage Note: Pt to ED via EMS with c/o bilateral neck pain and stiffness, pt reports awoke with this symptom. Pt reports right shoulder stiffness at dialysis yesterday. Pt has a L arm fistula. Nursing Sepsis Screen: No Definite Risk History of Present Illness Date Seen by Provider: August 27, 2019 Time Seen by Provider: 09:10 Initial Comments this pt here for Right Shoulder pain and Neck pain. Pt states has had this pain for years and takes percocet for this but is normal medications not enough. Has no new Complaints. states seemed to get worse since Dialysis yesterday. Pain/Injury Location: right shoulder Allergies and Home Medications Allergies Coded Allergies: Penicillins (Unverified Adverse Reaction, Unknown, 04/07/19) bacitracin (Unverified Adverse Reaction, Unknown, 04/07/19) neomycin (Unverified Adverse Reaction, Unknown, 04/07/19) polymyxin B (Unverified Adverse Reaction, Unknown, 04/07/19) Patient Home Medication List Home Medication List Reviewed: Yes Review of Systems Constitutional: No no symptoms reported; see HPI; No chills, No diaphoresis, No dizziness, No fever, No malaise, No weakness, No weight gain, No weight loss, No other EENTM: No see HPI, No no symptoms reported, No ear discharge, No hearing loss, No ear pain, No blurred vision, No double vision, No eye pain, No tearing, No vision loss, No dental problems, No hoarseness, No mouth pain, No mouth swelling, No epistaxis, No nose congestion, No nose pain, No throat pain, No throat swelling, No other Respiratory: No no symptoms reported, No see HPI, No cough, No dyspnea on exertion, No hemoptysis, No orthopnea, No phlegm, No short of breath, No stridor, No wheezing, No other Cardiovascular: No no symptoms reported, No see HPI, No chest pain, No edema, No Hx of Intervention, No palpitations, No syncope, No vascular heart diseas, No other Gastrointestinal: No RUQ, No LUQ, No RLQ, No LLQ, No no symptoms reported, No see HPI, No abdominal pain, No constipation, No diarrhea, No dysphagia, No hematemesis, No heartburn, No jaundice, No loss of appetite, No melena, No nausea, No vomiting, No other Musculoskeletal: No no symptoms reported; see HPI; No back pain, No gout, No joint pain, No joint swelling; muscle pain; No muscle stiffness, No muscle cramps, No muscle twitching, No muscle weakness; neck pain; No other Skin: No no symptoms reported, No see HPI, No change in color, No change in hair/nails, No dryness, No hx of skin cancer, No lesions, No lumps, No pruritus, No rash, No other All Other Systems Reviewed Negative Unless Noted: Yes Past Sdxjavz-Tfpvod-Lcmyyn Hx Patient Social History Type Used: Cigarettes Former Smoker, Quit: Apr 23, 1991 2nd Hand Smoke Exposure: No Recent Foreign Travel: No Contact w/Someone Who Travel: No Recent Infectious Disease Expo: No Recent Hopitalizations: No Immunizations Up To Date Tetanus Booster (TDap): Unknown Seasonal Allergies Seasonal Allergies: No Past Medical History Surgeries: Yes (CVC line placement, Fistula placement, AVR, hernia repair, kidney stones) Defibrillator, Valve Replacement, Vascular Surgery Respiratory: No (Tobaccoism hx 27 yrs) Cardiac: Yes (CHF) Hypertension Neurological: No Genitourinary: Yes Kidney Stones, Renal Failure, Dialysis Gastrointestinal: No Musculoskeletal: No Endocrine: Yes Hypothyroidsim HEENT: No Cancer: No Psychosocial: No Integumentary: No Recent Skin Changes Blood Disorders: No Physical Exam Vital Signs Vital Signs - First Documented 08/27/19 08:58 Temp 36.6 Pulse 83 Resp 20 B/P (MAP) 108/66 (80) Pulse Ox 95 O2 Delivery Room Air Capillary Refill : Less Than 3 Seconds Height, Weight, BMI Height: 5'9.00" Weight: 261lbs. oz. 118.677229yg; 37.00 BMI Method:Stated General Appearance: WD/WN, no apparent distress HEENT: PERRL/EOMI, normal ENT inspection, TMs normal, pharynx normal Neck: non-tender, full range of motion, supple, normal inspection Cardiovascular: normal peripheral pulses, regular rate, rhythm, no edema, no gallop, no JVD, no murmur Respiratory: chest non-tender, lungs clear, normal breath sounds, no respiratory distress, no accessory muscle use Gastrointestinal: normal bowel sounds, non tender, soft, no organomegaly, no pulsatile mass Back: normal inspection, no CVA tenderness, no vertebral tenderness Shoulder: normal inspection, non-tender, no evidence of injury, normal ROM Skin: normal color, warm/dry Progress/Results/Core Measures Results/Orders Vital Signs/I&O 08/27/19 08:58 Temp 36.6 Pulse 83 Resp 20 B/P (MAP) 108/66 (80) Pulse Ox 95 O2 Delivery Room Air Blood Pressure Mean: 80 Progress Progress Note : Time: 09:24 Progress Note Continues with Home meds. (Percocet) Alternate heat and Ice. F/U with PCP for any medications Changes Departure Impression Primary Impression: Chronic pain Disposition: HOME, SELF-CARE Condition: Stable Departure-Patient Inst. Decision time for Depature: 09:25 Referrals: SELFBRANDIN MD (PCP/Family) Primary Care Physician Patient Instructions: Chronic Pain (DC) Add. Discharge Instructions: Continues with Home meds. (Percocet) Alternate heat and Ice. F/U with PCP for any medications Changes. All discharge instructions reviewed with patient and/or family. Voiced understanding. CYNTHIA BRAMBILA MD August 27, 2019 09:26
[2019-08-27 09:27] VITALS: BP 100/65
== END 2019-08-27 09:27 | disposition home or self-care (01) ==
LOC: EDBD → EDUNIT# 08:56 → ER FS 08:58
DX: G89.29 Other chronic pain (principal); M54.2 Cervicalgia; I11.0 Hypertensive heart disease with heart failure; I50.9 Heart failure, unspecified; Z99.2 Dependence on renal dialysis; Z88.0 Allergy status to penicillin; Z88.1 Allergy status to other antibiotic agents; Z87.891 Personal history of nicotine dependence; Z95.810 Presence of automatic (implantable) cardiac defibrillator
CPT/HCPCS: 99283

== ENCOUNTER → 2019-08-28 | Outpatient (CLI) | payer MEDICARE, OTHER ==
[~2019-08-28] MED LIST changes: +Demadex
--- NOTE | 2019-08-28 10:55 | Diagnostic Imaging Report ---
CLINICAL INDICATION: Patient with neck pain. No known injury. EXAM: X-ray of the cervical spine, 3 views and open-mouth view. COMPARISON: None. FINDINGS: There is no acute cervical spine fracture. There is grade 1 anterolisthesis of C4 on C5. There is straightening and kyphosis of the cervical spine posture seen which is centered at C4-C5 level. There is moderate to severely hypertrophic anterior spurs at C4-C7 levels. There is moderate to severe loss of disc space height at the C5-C6 level, moderate loss at the C6-C7 level. There is mild loss of disc space height at the C3-C4 and C4-C5 levels. There is facet arthropathy. Odontoid view show no significant abnormality. Partially visualized sternotomy wires are noted. IMPRESSION: There is severe degenerative disc disease involving the lower cervical spine region, as described above. There is abnormal kyphosis of the cervical spine posture centered at the C4-C5 level. Dictated by: Dictated on workstation # [id number]
--- NOTE | 2019-08-28 15:02 | Diagnostic Imaging Report ---
CLINICAL INDICATION: Patient with head and neck pain x2 days. No known injury. EXAM: Axial CT scan of the brain performed without IV contrast. COMPARISON: None. FINDINGS: There is skull streak artifact which obscures portions of the posterior fossa, brainstem, and portions of the brain of the skull. There is no evidence of acute cerebral infarct, intracranial hemorrhage, or gross mass effect. The brain parenchymal volume appears appropriate for patient's age. There are patchy areas of low-attenuation white matter changes involving both cerebral hemispheres, likely representing chronic small vessel ischemic disease. There is normal leal-white matter distinction. There is no significant midline shift or herniation. There is no evidence of hydrocephalus. The basal cisterns are unremarkable. There is thickening and calcification of the left ear/pinna, likely related to chronic changes. The skull, extracranial soft tissue, and orbits are unremarkable. The paranasal sinuses are unremarkable. Temporal bones show no significant abnormality. IMPRESSION: Motion artifact limits evaluation of portions of this exam. Otherwise, there is no gross CT evidence of acute intracranial process. Dictated by: Dictated on workstation # [id number]
== END ==
LOC: EDBD → RAD FS 10:20
PROVIDERS: ATTEND Nurse Practitioner
DX: M50.323 Other cervical disc degeneration at C6-C7 level (principal); M40.202 Unspecified kyphosis, cervical region; R51 Headache
CPT/HCPCS: 70450; 72040

== ENCOUNTER 2019-08-30 02:56 | Emergency (ER) | payer MEDICARE, OTHER ==
[~2019-08-30] VITALS: Ht 185 cm; Wt 117.0 kg
--- OUTSIDE RECORDS SUMMARY | 2019-08-30 03:06 | XMS REPORT | Continuity of Care Document ---
Author Organization Unknown Address Unknown Phone Unavailable Allergies Active Description Code Type Severity Reaction Onset Reported/Identified Relationship to Patient Clinical Status Yes bacitracin [id number] Drug Allerg y Unknown N/A 11/09/2018 Yes neomycin [id number] Drug Allergy Unknown N/A 11/09/2018 Yes Penicillins [id number] Drug Aller gy Unknown N/A 11/09/2018 Yes polymyxin B [id number] Drug Aller gy Unknown N/A 11/09/2018 Medications [...] OF PROSTHETIC HEART VALVE 11/09/2018 Ot Z95.810 TX ESENCE OF AUTOMATIC (IMPLANTABLE) CARD 11/09/2018 Ot [...] TO OTHER ANTIBIOTIC AGENT 04/04/2019 Ot Z95.810 TX ESENCE OF AUTOMATIC (IMPLANTABLE) CARD 04/04/2019 Ot Z99.2 DEPE NDENCE ON RENAL DIALYSIS 05/10/2019 BILLY CASE, WALLACE Laughlin Ot E03.9 HYPOTHYROIDISM, UNSPECIFIED 05/10/2019 BILLY CASE, WALLACE Laughlin Ot 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 05/10/2019 WALLACE CERVANTES MD Ot I50.9 HEART FAILURE, UNSPECIFIED 05/10/2019 BILLY CASE, WALLACE Laughlin Ot N18.6 END STAGE RENAL DISEASE 05/10/2019 WALLACE CERVANTES MD Ot T80.219A UNSP INFECTION DUE TO CENTRAL VENOUS CAT 05/10/2019 WALLACE CERVANTES MD Ot Z87.442 PERSONAL HISTORY OF URINARY CALCULI 05/10/2019 WALLACE CERVANTES MD Ot Z87.891 PERSONAL HISTORY OF NICOTINE DEPENDENCE 05/10/2019 WALLACE CERVANTES MD Ot Z88.0 ALLERGY STATUS TO PENICILLIN 05/10/2019 WALLACE CERVANTES MD Ot Z88.1 ALLERGY STATUS TO OTHER ANTIBIOTIC AGENT 05/10/2019 WALLACE CERVANTES MD Ot Z88.4 ALLERGY STATUS TO ANESTHETIC AGENT STATU 05/10/2019 WALLACE CERVANTES MD Ot Z95.2 PRESENCE OF PROSTHETIC HEART VALVE 05/10/2019 WALLACE CERVANTES MD Ot Z95.810 PRESENCE OF AUTOMATIC (IMPLANTABLE) CARD 05/10/2019 WALLACE CERVANTES MD Ot Z99.2 DEPENDENCE ON RENAL DIALYSIS 05/13/2019 WALLACE CERVANTES MD Ot E03.9 HYPOTHYROIDISM, UNSPECIFIED 05/13/2019 WALLACE CERVANTES MD, Ot 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 05/13/2019 WALLACE CERVANTES MD, Ot I50.9 HEART FAILURE, UNSPECIFIED 05/13/2019 WALLACE CERVANTES MD, Ot N18.6 END STAGE RENAL DISEASE 05/13/2019 [...] TO OTHER ANTIBIOTIC AGENT 05/13/2019 WALLACE CERVANTES MD Ot Z88.4 ALLERGY STATUS TO ANESTHETIC AGENT STATU 05/13/2019 WALLACE CERVANTES MD Ot Z95.2 PRESENCE OF PROSTHETIC HEART VALVE 05/13/2019 WALLACE CERVANTES MD Ot Z95.810 PRESENCE OF AUTOMATIC (IMPLANTABLE) CARD 05/13/2019 WALLACE CERVANTES MD Ot Z99.2 DEPENDENCE ON RENAL DIALYSIS 08/29/2019 CYNTHIA BRAMBILA MD Ot G89.29 OTHER CHRONIC PAIN 08/29/2019 CYNTHIA BRAMBILA MD Ot I11.0 HYPERTENSIVE HEART DISEASE WITH HEART FA 08/29/2019 CYNTHIA BRAMBILA MD, Ot I50.9 HEART FAILURE, UNSPECIFIED 08/29/2019 CYNTHIA BRAMBILA MD Ot M54.2 CERVICALGIA 08/29/2019 CYNTHIA BRAMBILA MD, Ot Z87.891 PERSONAL HISTORY OF NICOTINE DEPENDENCE 08/29/2019 CYNTHIA BRAMBILA MD, Ot Z88.0 ALLERGY STATUS TO PENICILLIN 08/29/2019 CYNTHIA BRAMBILA MD, Ot Z88.1 ALLERGY STATUS TO OTHER ANTIBIOTIC AGENT 08/29/2019 CYNTHIA BRAMBILA MD, Ot Z95.810 PRESENCE OF AUTOMATIC (IMPLANTABLE) CARD 08/29/2019 CYNTHIA BRAMBILA MD, Ot Z99.2 DEPENDENCE ON RENAL DIALYSIS 08/29/2019 JULIO CÉSAR CHIANG APRN Ot 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 Results Test [...] by ligh t microscopy LARGE DONALD URATES [facility] Comprehensive metabolic panel - 02/02/18 18:46 Serum [...] culture - 02/02/18 18:46 Bacterial urine culture [id number] NR COLONY COUNT >100,000/ML NRG FTX;REPORTABLE PLUS MIXED BACTERIAL GIOVANNA [facility] FREE TEXT ENTRY 2 ID REPORTED 02/04/18 15:05 [facility] FREE TEXT ENTRY 3 SUSCEPTIBILITIES REPORTED ,1205 [facility] RML Sensitivity Panel - 02/02/18 18:46 Gentamicin [...] 07:25 FREE TEXT EXTERNAL SUSCEPTIBILITY REPORTED 9, 1753. NRG QUANTITY OF GROWTH Isolated NRG Bacterial blood culture [id number] NRG CALL POSITIVES (F1 HELP) METHICILLIN SENSITI [...] 08:14 FREE TEXT EXTERNAL REFER TO CULTURE [id number] FOR MAIKEL DIES NRG QUANTITY OF GROWTH Isolated NRG Bacterial blood culture [id number] NRG CALL POSITIVES (F1 HELP) RML CONFIRMED [...] Status Pt. Type Provider Facility Loc./Unit Complaint [id number] 08/27/2019 08:58:00 020 09:27:00 DIS Outpatient PATTY CASE, CYNTHIA [facility] ER FS NECK PAIN [id number] 05/10/2019 09:19:00 020 15:14:00 DIS Emergency BILLY CASE, WALLACE Laughlin [facility] ER INFECTED PICC L INE [id number] 02/02/2018 18:43:00 018 23:59:59 CLS Outpatient SELF BRANDIN CASE [facility] MLF CMP,CBCWD,UA REFLEX TO CULTURE [id number] 08/28/2019 10:20:[address] Outpatient JULIO CÉSAR CHIANG APRN [facility] RAD FS CERVICALGIA [id number] 04/07/2019 09:29:00 Document Registration [id number] 11/09/2018 10:37:00 Document Registration
[2019-08-30] MEDS ORDERED: AMIODARONE (OMNICELL DRIP KIT) 150 MG/3 ML IV ONE (03:11)
[2019-08-30] MEDS ORDERED: LORazepam INJ 2 MG/ML (ATIVAN) VIAL ONE (03:19)
[2019-08-30] MEDS ORDERED: EPINEPHrine INJECTION 1 MG/ML AMP IV STA ×2 (03:51)
[2019-08-30 03:52] LABS: WHITE BLOOD COUNT 6.3 10^3/uL (4.3-11.0)
[2019-08-30 03:53] LABS: BASOPHILS % (AUTO) 0 % (0-10); EOSINOPHILS # (AUTO) 0.1 10^3/uL (0.0-0.3); EOSINOPHILS % (AUTO) 1 % (0-10); HEMATOCRIT 38 % (40-54); HEMOGLOBIN 12.2 G/DL (13.3-17.7); LYMPHOCYTES % (AUTO) 16 % (12-44); MEAN CORPUSCULAR HEMOGLOBIN 35 PG (25-34); MEAN CORPUSCULAR HGB CONC 32 G/DL (32-36); MEAN CORPUSCULAR VOLUME 110 FL (80-99); MEAN PLATELET VOLUME 13.3 FL (7.4-10.4); MONOCYTES # (AUTO) 0.3 X 10^3 (0.0-1.0); MONOCYTES % (AUTO) 5 % (0-12); NEUTROPHILS # (AUTO) 4.2 X 10^3 (1.8-7.8); NEUTROPHILS % (AUTO) 67 % (42-75); PLATELET COUNT 88 10^3/uL (130-400); RED CELL DISTRIBUTION WIDTH 15.1 % (10.0-14.5)
[2019-08-30] MEDS ORDERED: NS IV 1000 ML 1,000 ML ONE (03:54)
--- NOTE | 2019-08-30 03:55 | ED CPR ---
HPI-CPR General Chief Complaint: Cara Pandey Stated Complaint: SEIZURE Nursing Triage Note: Pt's called EMS due to pt having a seizure at home. Pt had a seizure with EMS on the way to the ER and 2mg of Ativan was given IV. Upon arrival to the ER pt lost a pulse and CPR was started. Sepsis Screen: No Definite Risk Source of Information: EMS History of Present Illness Date Seen by Provider: August 30, 2019 Time Seen by Provider: 03:10 Initial Comments Arrives EMS after being found at home "having a seizure" while on the toilet. No preceding event, states he has been complaining of headaches. Missed dialysis on (didn't feel well). Normally dialyses [facility] gave 2mg Ativan prior to arrival, then called cara pandey and started CPR in ambulance bay. Unresponsive, pulse-less and apneic on initial assessment. No known Hx of seizures. Initial Complaints: Collapsed, Found Unresponsive Bystander CPR: No Paramedics Initial Findings: Unresponsive assumed having seizure, given Ativan Allergies and Home Medications Allergies Coded Allergies: Penicillins (Unverified Adverse Reaction, Unknown, 04/07/19) bacitracin (Unverified Adverse Reaction, Unknown, 04/07/19) neomycin (Unverified Adverse Reaction, Unknown, 04/07/19) polymyxin B (Unverified Adverse Reaction, Unknown, 04/07/19) Patient Home Medication List Home Medication List Reviewed: Yes Review of Systems Review of Systems Constitutional: see HPI Respiratory: See HPI Cardiovascular: See HPI Psychiatric/Neurological: See HPI Past Myizybv-Csqkcj-Nkzwhz Hx Past Med/Social Hx: Reviewed Nursing Past Med/Soc Hx Patient Social History Alcohol Use: Denies Use Recreational Drug Use: No Smoking Status: Former Smoker Type Used: Cigarettes Former Smoker, Quit: Apr 23, 1991 2nd Hand Smoke Exposure: No Recent Foreign Travel: No Contact w/Someone Who Travel: No Recent Infectious Disease Expo: No Recent Hopitalizations: No Immunizations Up To Date Tetanus Booster (TDap): Unknown Seasonal Allergies Seasonal Allergies: No Past Medical History Surgeries: Yes (L Fistula placement, AVR, hernia repair, kidney stones) Defibrillator, Valve Replacement, Vascular Surgery Respiratory: No (Tobaccoism hx 27 yrs) Cardiac: Yes (CHF) Hypertension Neurological: No Genitourinary: Yes Kidney Stones, Renal Failure, Dialysis Gastrointestinal: No Musculoskeletal: No (chronic neck pain) Endocrine: Yes Hypothyroidsim HEENT: No Cancer: No Psychosocial: No Integumentary: No Recent Skin Changes Blood Disorders: No Physical Exam Vital Signs Vital Signs - First Documented 08/30/19 03:31 Temp 35.6 Pulse 64 Resp 18 B/P (MAP) 103/64 (77) Pulse Ox 88 O2 Delivery Ambu Bag O2 Flow Rate 15.00 Capillary Refill : Less Than 3 Seconds Height, Weight, BMI Height: 5'9.00" Weight: 261lbs. oz. 118.158626zf; 34.00 BMI Method:Stated General Appearance: Other (Unresponsive) Neck: Normal Inspection; No JVD Respiratory: No Respiratory Distress, Other (no spontaneous respirations. Apneic. Easy bag ventilation) Cardiovascular: No JVD, Other (pulseless on initial assesment and CPR continued while monitoring established. Initial monitor shows V-tach and pt has return of pulse) Gastrointestinal: Soft; No Distended Extremity: Other (chronic LE edema) Neurologic/Psychiatric: Other (unresponsive) Procedures/Interventions Reason for Intubation: agonal breathing, hypoxia, unresponsive, GCS=3 Date of ETT Placement: August 30, 2019 Time of ETT Placement: 03:20 Intubation Method: orotracheal Positive End Tide CO2: Yes Breath Sounds after Intubation: bilateral-equal Intubation Complications: no complications Post Intubation Xray: No (no portable x-ray available) good ventilation w improving sats Progress/Results/Core Measures Results/Orders Lab Results Laboratory Tests Test 08/30/19 03:44 Range/Units White Blood Count 6.3 4.3-11.0 10^3/uL Red Blood Count 3.46 L 4.35-5.85 10^6/uL Hemoglobin 12.2 L 13.3-17.7 G/DL Hematocrit 38 L 40-54 % Mean Corpuscular Volume 110 H 80-99 FL Mean Corpuscular Hemoglobin 35 H 25-34 PG Mean Corpuscular Hemoglobin Concent 32 32-36 G/DL Red Cell Distribution Width 15.1 H 10.0-14.5 % Platelet Count 88 L 130-400 10^3/uL Mean Platelet Volume 13.3 H 7.4-10.4 FL Neutrophils (%) (Auto) 67 42-75 % Lymphocytes (%) (Auto) 16 12-44 % Monocytes (%) (Auto) 5 0-12 % Eosinophils (%) (Auto) 1 0-10 % Basophils (%) (Auto) 0 0-10 % Neutrophils # (Auto) 4.2 1.8-7.8 X 10^3 Lymphocytes # (Auto) 1.0 1.0-4.0 X 10^3 Monocytes # (Auto) 0.3 0.0-1.0 X 10^3 Eosinophils # (Auto) 0.1 0.0-0.3 10^3/uL Basophils # (Auto) 0.0 0.0-0.1 10^3/uL Prothrombin Time > 120.0 *H 12.2-14.7 SEC INR Comment 0.8-1.4 Activated Partial Thromboplast Time 85 H 24-35 SEC Sodium Level 139 135-145 MMOL/L Potassium Level 6.1 H 3.6-5.0 MMOL/L Chloride Level 83 L 98-107 MMOL/L Carbon Dioxide Level 6 *L 21-32 MMOL/L Anion Gap 50 H 5-14 MMOL/L Blood Urea Nitrogen 99 H 7-18 MG/DL Creatinine 11.75 H 0.60-1.30 MG/DL Estimat Glomerular Filtration Rate 4 BUN/Creatinine Ratio 8 Glucose Level 40 *L 70-105 MG/DL Calcium Level 9.7 8.5-10.1 MG/DL Corrected Calcium 10.0 8.5-10.1 MG/DL Magnesium Level 4.2 H 1.6-2.4 MG/DL Total Bilirubin 1.0 0.1-1.0 MG/DL Aspartate Amino Transf (AST/SGOT) 84 H 5-34 U/L Alanine Aminotransferase (ALT/SGPT) 66 H 0-55 U/L Alkaline Phosphatase 99 40-136 U/L Myoglobin 2746.0 H 10.0-92.0 NG/ML Troponin I < 0.30 <0.30 NG/ML Total Protein 7.7 6.4-8.2 GM/DL Albumin 3.6 3.2-4.5 GM/DL My Orders Orders - ROVENSTINEODALYS DO Amiodarone For Bolus (Cordarone Bolus) (08/30/19 03:11) Lorazepam Injection (Ativan Injection) (08/30/19 03:19) Ed Iv/Invasive Line Start (08/30/19 03:45) Cbc With Automated Diff (08/30/19 03:45) Comprehensive Metabolic Panel (08/30/19 03:45) Protime With Inr (08/30/19 03:45) Partial Thromboplastin Time (08/30/19 03:45) Troponin I Fs (08/30/19 03:45) Myoglobin Serum (08/30/19 03:45) Magnesium (08/30/19 03:45) Epinephrine 1 Mg Injection (Adrenalin I (08/30/19 03:51) Epinephrine 1 Mg Injection (Adrenalin I (08/30/19 03:51) Lorazepam Injection (Ativan Injection) (08/30/19 04:00) Atropine Inj 10 Mg Syringe (Atropine In (08/30/19 04:00) Ns Iv 1000 Ml (Sodium Chloride 0.9%) (08/30/19 03:54) Norepinephrine 4 Mg/250 Ml (Norepinephri (08/30/19 04:28) Catheter(Urinary) Insert & Ass 03,15 (08/30/19 04:00) Calcium Chloride 10% Injection (Calcium (08/30/19 04:00) Ns Iv 1000 Ml (Sodium Chloride 0.9%) (08/30/19 05:30) Norepinephrine 4 Mg/250 Ml (Norepinephri (08/30/19 04:35) D50w (Emergency) Syringe (Dextrose 50% 5 (08/30/19 04:22) Vital Signs/I&O 08/30/19 08/30/19 08/30/19 08/30/19 03:31 03:40 04:22 04:36 Temp 35.6 35.8 Pulse 64 110 92 93 Resp 18 18 B/P (MAP) 103/64 (77) 95/62 91/51 86/56 Pulse Ox 88 91 O2 Delivery Ambu Bag Ambu Bag O2 Flow Rate 15.00 15.00 Blood Pressure Mean: 77 Progress Progress Note : Progress Note See Nurses note for CPR log and meds given. Mag given for what appeared to be Torsades on monitor Critical Care Note Critical Care Start Time: 03:10 Stop Time: 04:40 Total Time (minutes) 50 Progress Pt stabilized but in critical condition. HR 100, sat- 90%, MAP > 60 Departure Impression Primary Impression: Unresponsive Additional Impressions: Ventricular tachycardia CRF (chronic renal failure) Qualified Codes: N18.9 - Chronic kidney disease, unspecified Hyperkalemia Disposition: 02 XFER SHT-TRM HOSP Condition: Critical Transfer Transfer Reason: Exceeds level of care Transfer Progress Notes 0326- called [facility] 0330- spoke to Dr Hankins who accepts for transfer to ICU Life flight transfer- lifted @ 0500 Departure-Patient Inst. Referrals: SELF,BRANDIN CASE (PCP/Family) Primary Care Physician ODALYS BLANC DO August 30, 2019 03:55
[2019-08-30] MEDS ORDERED: CALCIUM CHLORIDE 1 GM/10 ML (IMS) SYR INJ ONE (04:00)
[2019-08-30] MEDS ORDERED: LORazepam INJ 2 MG/ML (ATIVAN) VIAL IVP ONE (04:00)
[2019-08-30] MEDS ORDERED: ATROPINE INJECTION 1 MG/10 ML SYR (ABBOTT) IV ONE (04:00)
[2019-08-30 04:17] LABS: CHLORIDE 83 MMOL/L (98-107); POTASSIUM 6.1 MMOL/L (3.6-5.0); SODIUM 139 MMOL/L (135-145)
[2019-08-30 04:18] LABS: BUN/CREATININE RATIO 8; CALCIUM 9.7 MG/DL (8.5-10.1); CARBON DIOXIDE 6 MMOL/L (21-32); CREATININE SERUM 11.75 MG/DL (0.60-1.30); GFR ESTIMATED 4; GLUCOSE 40 MG/DL (70-105); MAGNESIUM 4.2 MG/DL (1.6-2.4)
[2019-08-30 04:19] LABS: ALANINE AMINOTRANSFERASE 66 U/L (0-55); ALBUMIN 3.6 GM/DL (3.2-4.5); ALKALINE PHOSPHATASE 99 U/L (40-136); TOTAL PROTEIN 7.7 GM/DL (6.4-8.2)
--- NOTE | 2019-08-30 04:20 | NUR ---
0316- Sodium Bicarb 50mEq given 0342- 2g Magesium Sulfate given IVP 0355- Amiodarone 150mg IVP given
[2019-08-30] MEDS ORDERED: DEXTROSE 50% 50 ML (IMS) SYR IV ONE (04:22)
[2019-08-30] MEDS ORDERED: NOREPINEPHRINE 4 MG/250 ML 250 ML IV ONE (04:28)
[2019-08-30] MEDS ORDERED: NOREPINEPHRINE 4 MG/250 ML 250 ML IV SCH (04:35)
[2019-08-30 04:36] VITALS: BP 86/56
[2019-08-30] MEDS ORDERED: NS IV 1000 ML 1,000 ML IV SCH (05:30)
[2019-08-30 18:55] LABS: PARTIAL THROMBOPLASTIN TIME 85 SEC (24-35); PROTHROMBIN TIME PATIENT > 120.0 SEC (12.2-14.7)
== END 2019-08-30 04:46 | disposition short-term general hospital (02) ==
LOC: EDUNIT# 02:56 → EDBD 03:02 → ER FS 03:02
DX: R40.20 Unspecified coma (principal); I47.2 Ventricular tachycardia; I13.0 Hypertensive heart and chronic kidney disease with heart failure and stage 1 through stage 4 chronic kidney disease, or unspecified chronic kidney disease; N18.9 Chronic kidney disease, unspecified; I50.9 Heart failure, unspecified; E87.5 Hyperkalemia; Z99.2 Dependence on renal dialysis; Z88.0 Allergy status to penicillin; Z88.8 Allergy status to other drugs, medicaments and biological substances; Z88.1 Allergy status to other antibiotic agents; Z87.891 Personal history of nicotine dependence; Z95.810 Presence of automatic (implantable) cardiac defibrillator; Z95.4 Presence of other heart-valve replacement
CPT/HCPCS: 31500; 36415; 36680; 51702; 80053; 83735; 83874; 84484; 85025; 85610; 85730; 93041; 99291